=== PATIENT | male | born 1955 | race Caucasian/White ===

== ENCOUNTER → 2016-12-23 | Day surgery (SDC) | payer MEDICARE ==
[~2016-12-23] MED LIST: ACETAMINOPHEN500 M3 PO; ADVAIR INH; ADVIL200 M1 DOB; ALEVE; AMLODIPINE BESYL5 MG PO; ASPIRIN81 M2 PO; BENADRYL PO; CIPRO PO; CLOPIDOGREL75 MG PO; CYMBALTA PO; DICLOFENAC PO; DURAGESIC75 MCG EXT; FLAGYL PO; FLEXERIL PO; FLEXERIL10 MG PO; FLONASE ALLERG9.9 ML; GABAPENTIN300 MG PO; HYDROCODON-ACE1 EAC5 PO; KLONOPIN1 MG PO; LANSOPRAZOLE30 MG PO; LEVAQUIN PO; LIPITOR PO; LODINE PO; LOMOTIL TABLET1 TAB PO; LORTAB 10-5001 EACH PO; LORTAB 10/500 T1 TAB PO; LORTAB 7.5-5001 TAB PO; MORPHINE IR PO; MULTIVITAMIN PO; NASONEX17 GM; NEURONTIN PO; NEURONTIN100 MG PO; NITROSTAT0.4 MG SL; ORUDIS75 M1 PO; PRAVACHOL20 MG PO; PREDNISONE PO; PREDNISONE1 MG PO; PROAIR HFA8.5 GM INH; SKELAXIN PO; TOPROL XL PO; TYLOX1 CAP 5/50 PO; VITAMIN B122500 MCG PO; ZANAFLEX4 M1 PO; ZESTORETIC 10-1 EAC1 PO; ZESTRIL10 M1 PO; ZOFRAN ODT4 M1 PO; [UNRECOGNIZED DRUG - OTHER] PO
--- NOTE | ~2016-12-23 | OR ---
Unit #: [id number] #: [id number] Patient: PRISCILLA POLANCO [id number] [address] [place], [place] [address] [id number] O MR#: [id number] NAME: PRISCILLA POLANCO ROOM: Date of Procedure: 12/23/2016 Admission Date: 12/23/2016 Surgeon: Stefano Monroe M.D. : 1955 Attending Physician: Stefano Monroe M.D. Primary Care Physician: Nathan Vazquez M.D. OPERATIVE REPORT PREOPERATIVE DIAGNOSES Spondylolisthesis, lumbar disk herniation, back pain, radiculopathy. POSTOPERATIVE DIAGNOSES Spondylolisthesis, lumbar disk herniation, back pain, radiculopathy. PROCEDURE PERFORMED Lumbar epidural steroid injection with intravenous sedation and fluoroscopic guidance for needle localization. INDICATIONS FOR PROCEDURE The patient is a 61-year-old male with return of back and primarily right lower extremity pain due to previously mentioned nonsurgical pathology. He has a grade 2 spondylolisthesis at the L5-S1 level, significant degenerative change at L3 through S1 with disk herniation. He has done well with medical management and an epidural steroids about over a year or so. Last injection was completed 1 year ago. He seems to get additive improvement with a series of injections. Based on his history, pathology, symptomatology, and treatment options, we are going to proceed with a repeat epidural steroid injection today. DESCRIPTION OF PROCEDURE The patient was placed in a seated position. Standard monitors were applied. 2 mg of Versed were given for sedation and anxiolysis, which were adequate. Vital signs remained stable. Sterile prep and drape then of the lumbar area was performed. The skin then at the L4 level was localized with 1% lidocaine just to the right of midline. An 18-gauge Hustead needle was then advanced via right paramedian approach and loss of resistance technique in toward the epidural space. The patient did not complain of pain or paresthesia during needle advancement. After confirming proper positioning with fluoroscopy and radiographic contrast, 80 mg of Depo-Medrol and 4 mL of 0.125% bupivacaine were deposited. The patient tolerated the procedure otherwise well and was discharged to the recovery room in stable condition. Dictated by... Stefano Monroe M.D. P/modl Unit #: [id number] #: [id number] Patient: PRISCILLA POLANCO TD: 12/23/2016 14:50 JOB #: [id number] OPERATIVE REPORT Page 1 of 1 X Stefano Monroe MD X PROCEDURE OPERATIVE NOTE
== END | disposition home or self-care (01) ==
LOC: CCSC 08:30
DX: M51.17 Intervertebral disc disorders with radiculopathy, lumbosacral region (principal); M51.16 Intervertebral disc disorders with radiculopathy, lumbar region; M43.17 Spondylolisthesis, lumbosacral region; Z88.8 Allergy status to other drugs, medicaments and biological substances; Z79.82 Long term (current) use of aspirin; Z79.51 Long term (current) use of inhaled steroids; Z79.02 Long term (current) use of antithrombotics/antiplatelets; Z79.891 Long term (current) use of opiate analgesic; Z79.899 Other long term (current) drug therapy
CPT/HCPCS: 77003; J1040; J2250

== ENCOUNTER → 2017-01-06 | Day surgery (SDC) | payer MEDICARE ==
--- NOTE | ~2017-01-06 | OR ---
Unit #: [id number] #: [id number] Patient: PRISCILLA POLANCO [id number] [address] [address] [id number] O MR#: [id number] NAME: PRISCILLA POLANCO. ROOM: Date of Procedure: 01/06/2017 Admission Date: 01/06/2017 Surgeon: Stefano Monroe M.D. : 1955 Attending Physician: Stefano Monroe M.D. Primary Care Physician: Nathan Vazquez M.D. OPERATIVE REPORT PREOPERATIVE DIAGNOSES Spondylolisthesis, herniated nucleus pulposus, low back pain and radiculopathy. POSTOPERATIVE DIAGNOSES Spondylolisthesis, herniated nucleus pulposus, low back pain and radiculopathy. PROCEDURE PERFORMED Lumbar epidural steroid injection with intravenous sedation under fluoroscopic guidance for needle localization. HISTORY This is a 61-year-old male with return of back and right greater than left lower extremity pain due to previously mentioned diagnosis. Previous epidural steroids were done about a year ago. He had them done every year or so for the last four years and he gets about 10 to 11 months of very good improvement. Repeat injection done 2 weeks ago resulted in 40 to 50% settling. We are going to proceed with a second injection today. DESCRIPTION OF PROCEDURE The patient was placed in a seated position. Standard monitors were applied. Then, 2 mg of Versed were given for sedation and anxiolysis, which were adequate. Vital signs remained stable. Sterile prep and drape then of the lumbar area was performed. The skin then at the L4-L5 level was localized with 1% lidocaine. An 18-gauge Playsinotead needle was then advanced via loss of resistance technique and fluoroscopic guidance in toward the epidural space. After confirming proper positioning with fluoroscopy and radiographic contrast, 80 mg of Depo-Medrol and 4 mL of 0.125% bupivacaine were deposited. The patient tolerated the procedure otherwise well and was discharged to recovery room in stable condition. Dictated by... Stefano Monroe M.D. LHP/modl TD: 01/06/2017 10:44 JOB #: [id number] Unit #: [id number] #: [id number] Patient: PRISCILLA POLANCO OPERATIVE REPORT Page 1 of 1 X Stefano Monroe MD X PROCEDURE OPERATIVE NOTE
== END | disposition home or self-care (01) ==
LOC: CCSC 08:26
DX: M51.16 Intervertebral disc disorders with radiculopathy, lumbar region (principal); M43.16 Spondylolisthesis, lumbar region; Z88.8 Allergy status to other drugs, medicaments and biological substances; Z79.82 Long term (current) use of aspirin; Z79.02 Long term (current) use of antithrombotics/antiplatelets; Z79.51 Long term (current) use of inhaled steroids; Z79.899 Other long term (current) drug therapy
CPT/HCPCS: J1040; J2250

== ENCOUNTER → 2017-01-13 | Day surgery (SDC) | payer MEDICARE ==
--- NOTE | ~2017-01-13 | OR ---
Unit #: [id number] #: [id number] Patient: PRISCILLA POLANCO [id number] [address] [place], [place] [address] [id number] O MR#: [id number] NAME: PRISCILLA POLANCO ROOM: Date of Procedure: 01/13/2017 Admission Date: 01/13/2017 Surgeon: Stefano Monroe M.D. : 1955 Attending Physician: Stefano Monroe M.D. Primary Care Physician: Nathan Vazquez M.D. OPERATIVE REPORT JOB NOTE: CC: [facility]. PREOPERATIVE DIAGNOSES Back pain, radiculopathy, spondylolisthesis, herniated nucleus pulposus. POSTOPERATIVE DIAGNOSES Back pain, radiculopathy, spondylolisthesis, herniated nucleus pulposus. PROCEDURE PERFORMED Lumbar epidural steroid injection with intravenous sedation and fluoroscopic guidance for needle localization. INDICATIONS FOR PROCEDURE The patient is a 61-year-old male with return of back and right greater than left lower extremity pain due to previously mentioned diagnosis. He has grade 2 spondylolisthesis and severe degenerative disk disease from L3 through S1. He is treated medically with p.r.n. epidural steroid injections generally a series each years been very successful. This patient has had 2 injections done over the last several weeks that have given him added improvement. He is not yet back to its typical improvement level again, so we are going to proceed with a third and hopefully final injection at this point. DESCRIPTION OF PROCEDURE The patient was placed in a seated position. Standard monitors were applied. 2 mg of Versed were given for sedation and anxiolysis, which were adequate. Vital signs remained stable. Sterile prep and drape then of lumbar area was performed. The skin then at the right of midline at the L4-L5 level was localized with 1% lidocaine. An 18-gauge MyForcetead needle was then advanced via right paramedian approach and loss of resistance technique in toward the epidural space. The patient did not complain of any pain or paresthesia during needle advancement. After confirming proper positioning with fluoroscopy and radiographic contrast, 80 mg of Depo-Medrol and 4 mL of 0.125% bupivacaine were deposited. The patient tolerated the procedure otherwise well and was discharged to recovery room in stable condition. Dictated by... Stefano Monroe M.D. Unit #: [id number] #: [id number] Patient: PRISCILLA POLANCO DINA/ashley TD: 01/13/2017 11:59 JOB #: [id number] OPERATIVE REPORT Page 1 of 1 X Stefano Monroe MD X PROCEDURE OPERATIVE NOTE
== END | disposition home or self-care (01) ==
LOC: CCSC 08:16
DX: M51.16 Intervertebral disc disorders with radiculopathy, lumbar region (principal); M43.16 Spondylolisthesis, lumbar region
CPT/HCPCS: J1040; J2250